=== PATIENT | male | born 1950 | race Caucasian/White ===

== ENCOUNTER → 2016-12-30 | Day surgery (SDC) | payer MEDICARE | LOC: RAD 13:09 | PROVIDERS: ATTEND Physician Assistant | PROC: BP0MZZZ Plain Radiography of Left Wrist (ICD-10-PCS; principal; 2016-12-30) | DX: S63.392A Traumatic rupture of other ligament of left wrist, initial encounter (principal); X58.XXXA Exposure to other specified factors, initial encounter | CPT/HCPCS: 73222; 73115; 77002; A9576 ==